=== PATIENT | male | born 1945 | race Caucasian/White ===

== ENCOUNTER 2020-08-21 12:17 | Inpatient (IN) | payer OTHER ==
[2020-08-21 12:23] VITALS: BMI 23.4
[2020-08-21] MEDS ORDERED: SODIUM CHLORIDE 1,000 ML IV SCH ×2 (13:15→18:45)
[2020-08-21 13:45] LABS: BASO % 0.9 % (0-2.0); EOS % 7.4 % (0-4.5); HEMATOCRIT 40.1 % (35.4-49); HEMOGLOBIN 13.3 GM/dL (11.7-16.9); MCH 32.3 pg (25.7-33.7); MCHC 33.1 g/dl (32.0-35.9); MEAN CELL VOLUME 97.5 fl (80-96); MEAN PLT VOLUME 10.8 fl (7.5-11.1); MONO % 7.4 % (3.8-10.2); NEUT % 54.3 % (42.8-82.8); PLATELET COUNT 206 K/MM3 (134-434); RBC 4.11 M/mm3 (4.00-5.60); RDW 14.4 % (11.9-15.9); WHITE BLOOD COUNT 10.4 K/mm3 (4.0-10.0)
[2020-08-21 13:50] LABS: INR 1.06 (0.83-1.09)
[2020-08-21 14:04] LABS: ALBUMIN 3.4 g/dl (3.4-5.0)
[2020-08-21 14:07] LABS: CREATININE 0.8 mg/dL (0.55-1.3)
[2020-08-21 14:09] LABS: BILIRUBIN,TOTAL 0.4 mg/dL (0.2-1); TOT PROT 6.9 g/dl (6.4-8.2)
[2020-08-21] MEDS ORDERED: ACETAMINOPHEN 1000 MG/100 ML BAG IVPB ONE (15:15)
[2020-08-21] MEDS ORDERED: ACETAMINOPHEN INJECTION 100 ML IVPB ONE (15:18)
[2020-08-21] MEDS ORDERED: ACETAMINOPHEN 1000 MG/100 ML BAG IVPB PRN (18:41)
[2020-08-21] MEDS ORDERED: PIPERACILLIN/TAZOB 3.375 GM 3.375 GM in DEXTROSE 5%-WATER - 50 ML IVPB ONE (20:00)
[2020-08-21] MEDS ORDERED: PIPERACILLIN/TAZOB 3.375 GM 3.375 GM/50 ML BAG IVPB ONE (20:30)
[2020-08-22 08:19] LABS: BASO % 0.7 % (0-2.0); HEMATOCRIT 40.2 % (35.4-49); HEMOGLOBIN 13.4 GM/dL (11.7-16.9); LYMPH % 23.8 % (8-40); MCH 32.3 pg (25.7-33.7); MCHC 33.4 g/dl (32.0-35.9); MEAN CELL VOLUME 96.7 fl (80-96); MEAN PLT VOLUME 10.6 fl (7.5-11.1); MONO % 8.7 % (3.8-10.2); NEUT % 56.8 % (42.8-82.8); PLATELET COUNT 206 K/MM3 (134-434); RBC 4.16 M/mm3 (4.00-5.60); RDW 14.3 % (11.9-15.9); WHITE BLOOD COUNT 10.2 K/mm3 (4.0-10.0)
[2020-08-22 08:56] LABS: CALCIUM 8.3 mg/dL (8.5-10.1)
[2020-08-22 08:57] LABS: BLOOD UREA NITROGEN 10.3 mg/dL (7-18)
[2020-08-22 09:00] LABS: CREATININE 0.6 mg/dL (0.55-1.3)
[2020-08-22 09:01] LABS: BILIRUBIN,TOTAL 0.6 mg/dL (0.2-1); TOT PROT 6.2 g/dl (6.4-8.2)
[2020-08-22] MEDS ORDERED: PIPERACILLIN/TAZOB 3.375 GM 3.375 GM in DEXTROSE 5%-WATER - 50 ML IVPB SCH (10:00)
[2020-08-22] MEDS ORDERED: PNEUMOC 13-VAL CONJ-DIP CRM/PF 0.5 ML DISP.SYRIN IM ONE (10:00)
[2020-08-22] MEDS ORDERED: PIPERACILLIN/TAZOBACTAM 3.375 GM VIAL IVPB ONE ×2 (10:26→16:39)
[2020-08-22] MEDS ORDERED: DEXTROSE 5%-WATER - 50 ML IVPB ONE ×2 (10:27→16:39)
[2020-08-22] MEDS ORDERED: SUCCINYLCHOLINE CHLORIDE 200 MG/10 ML SYRINGE ONE (12:32)
[2020-08-22] MEDS ORDERED: PROPOFOL 20 ML ONE (12:32)
[2020-08-22] MEDS ORDERED: LIDOCAINE HCL/PF 2% SDV 5ML VIAL ONE (12:33)
[2020-08-22] MEDS ORDERED: MIDAZOLAM HCL 2 MG/2 ML SINGLE DOSE VIAL ONE (12:33)
[2020-08-22] MEDS ORDERED: ROCURONIUM BROMIDE 50 MG/5 ML SYRINGE ONE (13:10)
[2020-08-22] MEDS ORDERED: ONDANSETRON 4 MG/2 ML VIAL IVPUSH PRN ×2 (13:54→14:36)
[2020-08-22] MEDS ORDERED: LACTATED RINGERS SOLUTION 1,000 ML IV SCH (14:00)
[2020-08-22] MEDS ORDERED: NEOSTIGMINE METHYLSULFATE 0.5 MG/1 ML - 10 ML MDV ONE (14:09)
[2020-08-22] MEDS ORDERED: ACETAMINOPHEN 1000 MG/100 ML BAG IVPB PRN (14:36)
[2020-08-22] MEDS: LACTATED RINGERS SOLUTION 1,000 ML IV SCH (15:51)
[2020-08-22] MEDS: PIPERACILLIN/TAZOB 3.375 GM 3.375 GM in DEXTROSE 5%-WATER - 50 ML IVPB SCH (18:25)
[2020-08-23] MEDS ORDERED: PIPERACILLIN/TAZOBACTAM 3.375 GM VIAL IVPB ONE ×2 (02:13→09:00)
[2020-08-23] MEDS ORDERED: DEXTROSE 5%-WATER - 50 ML IVPB ONE ×2 (02:13→09:01)
[2020-08-23] MEDS: PIPERACILLIN/TAZOB 3.375 GM 3.375 GM in DEXTROSE 5%-WATER - 50 ML IVPB SCH ×2 (02:15→09:09)
[2020-08-23 08:25] LABS: BASO % 0.6 % (0-2.0); EOS % 0.3 % (0-4.5); HEMOGLOBIN 12.7 GM/dL (11.7-16.9); LYMPH % 21.8 % (8-40); MCH 31.7 pg (25.7-33.7); MCHC 32.5 g/dl (32.0-35.9); MEAN CELL VOLUME 97.7 fl (80-96); MEAN PLT VOLUME 10.8 fl (7.5-11.1); MONO % 7.9 % (3.8-10.2); NEUT % 69.4 % (42.8-82.8); PLATELET COUNT 204 K/MM3 (134-434); RBC 3.99 M/mm3 (4.00-5.60); RDW 14.1 % (11.9-15.9); WHITE BLOOD COUNT 9.8 K/mm3 (4.0-10.0)
[2020-08-23 08:55] LABS: ALBUMIN 2.7 g/dl (3.4-5.0); BLOOD UREA NITROGEN 17.6 mg/dL (7-18); CALCIUM 8.1 mg/dL (8.5-10.1)
[2020-08-23 08:59] LABS: CREATININE 0.8 mg/dL (0.55-1.3)
[2020-08-23 09:00] LABS: BILIRUBIN,TOTAL 0.4 mg/dL (0.2-1); TOT PROT 5.9 g/dl (6.4-8.2)
[2020-08-23] MEDS: AMOX TR/POT CLAV 875MG/125MG TABLETS (FP) PO SCH (16:53)
[2020-08-23] MEDS: LACTATED RINGERS SOLUTION 1,000 ML IV SCH (16:53)
[2020-08-24] MEDS: INSULIN SLIDING SCALE (NOVOLOG) 1 VIAL SQ SCH ×3 (00:30→11:47)
[2020-08-24 06:43] LABS: BASO % 0.9 % (0-2.0); EOS % 5.1 % (0-4.5); HEMATOCRIT 37.1 % (35.4-49); HEMOGLOBIN 12.4 GM/dL (11.7-16.9); LYMPH % 44.9 % (8-40); MCH 32.3 pg (25.7-33.7); MCHC 33.5 g/dl (32.0-35.9); MEAN CELL VOLUME 96.4 fl (80-96); MEAN PLT VOLUME 10.2 fl (7.5-11.1); MONO % 8.8 % (3.8-10.2); NEUT % 40.3 % (42.8-82.8); PLATELET COUNT 195 K/MM3 (134-434); RBC 3.84 M/mm3 (4.00-5.60); RDW 14.2 % (11.9-15.9); WHITE BLOOD COUNT 9.9 K/mm3 (4.0-10.0)
[2020-08-24] MEDS: AMOX TR/POT CLAV 875MG/125MG TABLETS (FP) PO SCH (08:23)
[2020-08-24] MEDS ORDERED: POLYETHYLENE GLYCOL 3350 119 GM BTL PO SCH (10:00)
[2020-08-24 10:58] VITALS: BP 122/61; PULSE 76; TEMP 98.2
[2020-08-24] MEDS ORDERED: DOCUSATE SODIUM 100 MG CAPSULE (FP) PO SCH (22:00)
== END 2020-08-24 14:30 | disposition home health service (06) | DRG 353 ==
LOC: JER 12:17 → JERBED 15:35 → J7W 21:25
PROVIDERS: ADMIT Internal Medicine; ATTEND Internal Medicine
PROC: 0W9F0ZX Drainage of Abdominal Wall, Open Approach, Diagnostic (ICD-10-PCS; principal; 2020-08-22)
PROC: 0WQF0ZZ Repair Abdominal Wall, Open Approach (ICD-10-PCS; 2020-08-22)
PROC: 0DBU0ZZ Excision of Omentum, Open Approach (ICD-10-PCS; 2020-08-22)
DX: K43.0 Incisional hernia with obstruction, without gangrene (principal); K55.069 Acute infarction of intestine, part and extent unspecified; L02.211 Cutaneous abscess of abdominal wall; I10 Essential (primary) hypertension; E11.9 Type 2 diabetes mellitus without complications; R00.1 Bradycardia, unspecified
CPT/HCPCS: 36415; 74177-TC; 80053; 82962; 83605; 85025; 85610; 87040; 87070; 87076; 87186; 87205; 88305-TC; 93005; 93010; 94760; 99285-25; C9803; J0131; Q9967; U0003

== ENCOUNTER 2021-04-10 04:55 | Day surgery (SDC) | payer OTHER ==
[2021-04-09 15:26] VITALS: BMI 26.9
[2021-04-10 08:29] LABS: BASO % 1.1 % (0-2.0); EOS % 8.9 % (0-4.5); HEMATOCRIT 42.3 % (35.4-49); HEMOGLOBIN 14.7 GM/dL (11.7-16.9); LYMPH % 41.6 % (8-40); MCH 33.9 pg (25.7-33.7); MCHC 34.7 g/dl (32.0-35.9); MEAN CELL VOLUME 97.5 fl (80-96); MEAN PLT VOLUME 10.8 fl (7.5-11.1); MONO % 9.3 % (3.8-10.2); NEUT % 39.1 % (42.8-82.8); PLATELET COUNT 165 10^3/uL (134-434); RBC 4.34 M/mm3 (4.00-5.60); RDW 15.3 % (11.9-15.9); WHITE BLOOD COUNT 10.3 K/mm3 (4.0-10.0)
[2021-04-10 08:31] LABS: INR 0.98 (0.83-1.09); PROTHROMBIN TIME (PATIENT) 11.9 SEC (9.7-13.0)
[2021-04-10 14:29] VITALS: BP 141/61; PULSE 58; TEMP 97.9
== END 2021-04-10 14:20 | disposition home or self-care (01) ==
LOC: JRADIR 04:55
PROVIDERS: ATTEND Family Medicine Geriatric Medicine
PROC: 0BBG3ZX Excision of Left Upper Lung Lobe, Percutaneous Approach, Diagnostic (ICD-10-PCS; principal; 2021-04-10)
DX: J84.10 Pulmonary fibrosis, unspecified (principal)
CPT/HCPCS: 32408; 36415; 71046-TC-FY; 85025; 85610; 88305-TC; 88342-TC